=== PATIENT | male | born 1975 | race Caucasian/White ===

== ENCOUNTER → 2022-10-04 | Emergency (ER) | payer OTHER, MEDICAID ==
[~2022-10-04] VITALS: Ht 167.6 cm; Wt 77.1 kg
[~2022-10-04] MED LIST: LORazepam 2 MG/ML VIAL IVP ONE
[2022-10-04 11:00] VITALS: BP_SYST 128
--- NOTE | 2022-10-04 12:20 | NUR ---
PT BIBA FROM [facility], AWAKE AND CONFUSED. NO SOB OR DISTRESS. PT WAS LISA IN FOR LICKING BED WIPES AND DRINKING HAND [employer] GR[employer]. PT IS AOX1,
--- NOTE | 2022-10-04 12:25 | NUR ---
MD DR BAIRES AT BEDSIDE
--- NOTE | 2022-10-04 13:00 | NUR ---
PT TAKEN TO CT
[2022-10-04 13:02] LABS: ANION GAP 6 (5-15); CALCIUM 9.2 mg/dL (8.4-11.0); CHLORIDE 106 mmol/L (98-107); CREATININE 0.79 mg/dL (0.55-1.30); GLUCOSE 138 mg/dL (70-99); UREA NITROGEN, BLOOD 14 mg/dL (8-21)
[2022-10-04 13:04] LABS: GFR AFRICAN AMERICAN 136 mL/min (>90)
--- NOTE | 2022-10-04 13:05 | NUR ---
CXR AT BEDSIDE
[2022-10-04 13:07] LABS: BASOPHILS % (AUTO) 0.6 % (0.0-2.0); EOSINOPHILS # (AUTO) 0.3 K/uL (0.0-0.4); EOSINOPHILS % (AUTO) 7.3 % (0.0-4.0); HEMATOCRIT 38.4 % (36-54); HEMOGLOBIN 12.8 g/dL (14.0-18.0); LYMPHOCYTES # (AUTO) 1.4 K/uL (1.0-5.5); LYMPHOCYTES % (AUTO) 32.5 % (20.5-51.5); MEAN CORPUSCULAR HEMOGLOBIN 29 pg (27-31); MEAN CORPUSCULAR HGB CONC 33 % (32-36); MEAN CORPUSCULAR VOLUME 87 fL (79.0-98.0); MONOCYTES # (AUTO) 0.5 K/uL (0.0-1.0); MONOCYTES % (AUTO) 12.3 % (1.7-9.3); NEUTROPHILS # (AUTO) 2.1 K/uL (1.8-7.7); NEUTROPHILS % (AUTO) 47.3 % (40.0-70.0); PLATELET COUNT (AUTO) 218 K/uL (130-430); RED CELL DISTRIBUTION WIDTH 13.3 % (9.0-15.0); WHITE BLOOD COUNT (AUTO) 4.4 K/uL (4.8-10.8)
[2022-10-04 13:12] LABS: ALANINE AMINOTRANSFERASE 21 U/L (12-78); ALBUMIN 3.8 g/dL (3.4-4.8); ASPARTATE AMINOTRANSFERASE 17 U/L (10-37); TOTAL BILIRUBIN 0.4 mg/dL (0.0-1.0)
[2022-10-04 13:42] LABS: ALCOHOL, BLOOD < 3 mg/dL (<10)
== END | disposition home or self-care (01) ==
LOC: SED 11:00
DX: A01.03 Typhoid pneumonia (principal); G93.40 Encephalopathy, unspecified; R41.82 Altered mental status, unspecified; Z79.899 Other long term (current) drug therapy
CPT/HCPCS: 99285; 96374; 70450; 71045; 80053; 84439; 85025; 84484; 36415; 93005; 76376; G0482; J2060